=== PATIENT | female | born 2000 | race Caucasian/White ===

== ENCOUNTER 2018-12-27 11:28 | Emergency (ER) | payer MEDICAID, SELFPAY ==
[2018-12-27 11:33] VITALS: BP 141/80; PULSE 124; RESP 20; TEMP 36.6; O2SAT 100
[2018-12-27] MEDS: Normal Saline 1,000 ML 1000 ML IV ×2 (11:53→17:00)
[2018-12-27] MEDS: Normal Saline Flush 10 ML SYR IVP (11:53)
[2018-12-27 11:55] LABS: HCO3 (Venous) 18 mmol/L (22-28); O2 Sat (Venous) 53 % (70-80); TCO2 (Venous) 17 mmol/L (22-29); pCO2 (Venous) 45 mm/Hg (34-47); pO2 (Venous) 33 mm/Hg (28-44)
--- NOTE | 2018-12-27 11:58 | ED.GENADUL_ITS ---
Discharge Plan Disposition Patient Disposition: HOME Condition: Stable Discharge Details Chief Complaint: Diabetes Clinical Impression: DKA (diabetic ketoacidoses) Primary Care Provider: None,None ED Provider: Wally Jason Home Meds and New Rx's Prescriptions: New ondansetron 4 mg tablet,disintegrating 4 mg PO TID PRN (Reason: nausea and vomiting) 5 Days Qty: 30 RF: 0 Continued methen-m.blue-s.nutc-nksvp-sfa [Uribel] 1 EACH capsule 1 ea PO DAILY Qty: 20 RF: 0 ondansetron HCl [Zofran] 4 mg Tablet 4 mg PO PRN PRNRF: 0 meclizine 12.5 mg Tablet 12.5 mg PO PRN PRNRF: 0 No Action insulin aspart U-100 [Novolog Flexpen U-100 Insulin] 300 UNITS/3 ML insulin pen 1 units Sub-Q AC Qty: 1 RF: 0 insulin glargine [Lantus Solostar U-100 Insulin] 300 UNITS/3 ML insulin pen 28 unit SQ DAILY@1200 Qty: 1 RF: 0 pen needle, diabetic [Unifine Pentips] 1 EACH needle 1 ea Miscellaneous AC Qty: 100 RF: 0 Discharge Instructions Additional Instructions: You were in mild diabetic ketoacidosis that improved with fluids and insulin Try to make sure your insulin pump has the proper amount of insulin in Follow up with your primary care provider within 1-2 weeks if you have persistent vomit, feel more pain or feel significantly more ill return to the emergency department for an evaluation Discharge Data Discharge Date/Time-TO BE ENTERED AT DEPARTURE: 12/27/18 18:18 Medical Decision Making <Juan Wagner NP - Last Filed: 12/30/18 11:39> Patient presenting to the emergency department for chief complaint of abdominal pain, chest pain, and high sugars. Patient states that she is a type I diabetic and her insulin pump ran out of insulin last night in the middle the night when she was unaware of this. Patient denies any fever chills but does state some nausea without vomiting. Patient has diffuse chest pain and abdominal pain on physical exam and tachycardia otherwise unremarkable exam. Plan to give pain meds, IV fluids, check labs for concern of of DKA. Fingerstick sugar was reviewed and was 380s so patient ordered 10 mg IV insulin Reassessed after 1 L of normal saline, 1 L of LR, and insulin. Blood sugar has reduced and patient states significant improvement of pain discomfort and is fee ling better.normal chest xray. Patient still has dry mucosa so plan to check labs for review of anion gap, see if acidosis that was present on initial VBG has improved, and reassess need for further fluid hydration and insulin Reviewed labs and patient continues to have anion gap but no further acidosis, sugar has lowered to the low 200s, potassium remains okay. Patient ordered 5 more milligrams of IV insulin, 1 more liter of normal saline and LR. Pending further treatment patient was signed out to Dr. Erich Jason for reassessment and repeat labs as needed and p.o. challenge of patient. working Dx of DKA. Lab Data Lab results reviewed: Yes I reviewed the patient's lab results. HPI <Juan Wagner NP - Last Filed: 12/30/18 11:39> General Mode of arrival: ambulatory . Date/Time Provider Initiated Documentation: 12/27/18 11:34 . Limitations to Documentation: no limitations . Information obtained by: patient and RN notes reviewed . History of Present Illness 18 year old F presents to the emergency department with the chief complaint of Hyperglycemia, described as moderate, with intensity rated at 8. Quality is described as sharp, and is localized to the chest, abdomen, upper extremity and lower extremity. Related Data Home Medications Medication Instructions Recorded Confirmed insulin aspart U-100 [Novolog 1 units SUB-Q AC #1 pen 04/28/17 12/08/17 Flexpen U-100 Insulin] insulin glargine [Lantus Solostar 28 unit SQ DAILY@1200 #1 pen 04/28/17 12/08/17 U-100 Insulin] pen needle, diabetic [Unifine #100 dis.needle 04/28/17 12/08/17 Pentips] gaylebyrj-aaphc-tax 1 ea PO DAILY #20 tab-cap 02/10/18 [Uribel] meclizine 12.5 mg PO PRN PRN 12/27/18 12/27/18 ondansetron 4 mg PO TID PRN 5 Days #30 tab 12/27/18 ondansetron HCl [Zofran] 4 mg PO PRN PRN 12/27/18 12/27/18 Previous Rx's Medication Instructions Recorded insulin aspart U-100 [Novolog 1 units SUB-Q AC #1 pen 04/28/17 Flexpen U-100 Insulin] insulin glargine [Lantus Solostar 28 unit SQ DAILY@1200 #1 pen 04/28/17 U-100 Insulin] pen needle, diabetic [Unifine #100 dis.needle 04/28/17 Pentips] gaylehnzo-sbumd-rvh 1 ea PO DAILY #20 tab-cap 02/10/18 [Uribel] ondansetron 4 mg PO TID PRN 5 Days #30 tab 12/27/18 Allergies Allergy/AdvReac Type Severity Reaction Status Date / Time No Known Allergies Allergy Unverified 12/27/18 11:36 General Stated Complaint: Diabetes KYLE: 3 Review of Systems <Juan Wagner NP - Last Filed: 12/30/18 11:39> Constitutional Denies chills, Denies fever(s) and Denies poor appetite Cardiovascular Reports chest pain and Denies dyspnea Respiratory Denies cough and Denies dyspnea Gastrointestinal Reports as per HPI, Reports abdominal pain, Denies melena, Denies change in bowel habits, Denies constipation, Denies diarrhea, Reports nausea and Denies vomiting Genitourinary Denies hematuria, Denies urinary incontinence, Denies urinary hesitancy and Denies urinary urgency Integumentary/Breasts Denies rash PFSH <Juan Wagner NP - Last Filed: 12/30/18 11:39> Medical History Diabetes Social History Smoking and Tabacco status: Never Exam <Juan Wagner NP - Last Filed: 12/30/18 11:39> Const General: cooperative Orientation: alert, awake and oriented x3 Chest Chest: normal inspection of the chest and tenderness (Diffuse nonfocal) Resp Effort & Inspection: normal respiratory effort and able to speak in complete sentences Auscultation: clear to auscultation bilaterally Cardio Rate: tachycardic Rhythm: regular rhythm Heart Sounds: S1 normal, S2 normal, no click, no gallops, no murmurs and no rubs GI Palpation: soft, no hepatosplenomegaly, not firm, no guarding, no masses, no pulsatile masses, not rigid, no splenomegaly and tender (Diffuse nonfocal) Auscultation: normal bowel sounds Back/Spine/Pelvis Back: no CVA tenderness Neuro General: alert, awake, oriented x3, gait normal and moves all extremities Course <Juan Wagner NP - Last Filed: 12/30/18 11:39> Vital Signs Temperature 36.6 C 12/27/18 11:33 Pulse 124 H 12/27/18 11:33 Respiratory Rate 20 12/27/18 11:33 Blood Pressure 141/80 H 12/27/18 11:33 Pulse Oximetry 100 12/27/18 11:33 Temperature 36.6 C 12/27/18 11:33 Temperature Source Temporal Artery Scan 12/27/18 11:33 Pulse 124 H 12/27/18 11:33 Respiratory Rate 20 12/27/18 11:33 Respiratory Effort Non-Labored 12/27/18 11:33 Blood Pressure 141/80 H 12/27/18 11:33 Blood Pressure Position Sitting 12/27/18 11:33 Pulse Oximetry 100 12/27/18 11:33 Pain Level 10 12/27/18 11:33 Sign Out <Juan Wagner NP - Last Filed: 12/30/18 11:39> Sign Out Data: Sign Out Comment: Patient signed out to Dr. Erich Jason for reassessment after additional 2 L of fluids, IV insulin. Concern for DKA. Last updated by Juan Wagner NP at 12/27/18 16:12 Post-Handoff Eval: PAtient's labs signifciatnly improved, no longer has acidosis and she is tolerating po without any issues, no n/v. She feels well enough to be d/c'd and confirms with me that she does have insulin for her pump she just forgot to fill it last night which led to the mild dka today. She will f/u with pcp and return precautions given
[2018-12-27 11:59] LABS: Abs Immature Grans 0.05 k/cumm (0.0-0.09); Absolute Basophil Count 0.02 k/cumm (0.0-0.2); Absolute Lymphocyte Count 1.65 k/cumm (1.2-3.4); Absolute Monocyte Count 0.37 k/cumm (0.11-0.7); Absolute Neutrophil Count 13.42 k/cumm (1.2-6.7); Basophils % 0.1; Eosinophils % 0.3; HCT 41.8 % (36.0-46.0); HGB 14.3 g/dL (12.0-15.5); Immature Grans % 0.3; Lymphocytes % 10.6; Mean Corp. HGB Concentration 34.2 g/dL (32.0-36.0); Mean Corpuscular Hemoglobin 28.2 pg (27.0-33.0); Mean Corpuscular Volume 82.4 fL (80-95); Mean Platelet Volume 10.3 fL (8.0-11.0); Monocytes % 2.4; Neutrophils % 86.3; Platelet Count 340 x1000/uL (130-400); RBC 5.07 m/cumm (4.00-5.20); RBC Distribution Width 12.8 % (11.7-14.6); White Blood Cell Count 15.55 k/cumm (4.4-10.8)
[2018-12-27 12:00] LABS: Absolute Eosinophil Count 0.05 k/cumm (0.0-0.7)
[2018-12-27] MEDS: Insulin REGULAR-Human 100 UNITS/ML UNIT 10 UNITS IV (12:00)
[2018-12-27] MEDS: MORPHine 10 MG/ML VIAL 4 MG IVP (12:00)
--- NOTE | 2018-12-27 12:06 | DI.RAD_ITS ---
SYMPTOMS/DIAGNOSIS: CHEST PAIN CHEST X-RAY, PA AND LATERAL: No priors. The heart is normal in size. The lungs are clear. The mediastinal structures and pleura appear intact. IMPRESSION: Normal chest.
[2018-12-27 12:11] LABS: ALT 15 U/L (12-78); AST 15 U/L (15-37); Albumin 4.1 g/dL (3.4-5.0); Alkaline Phosphatase 99 U/L (46-116); Anion Gap 19.3 mmol/L (3-11); BUN 17 mg/dL (7-18); Bilirubin, Total 1.1 mg/dL (0.2-1.0); CO2 19.7 mmol/L (21.0-32.0); CREATININE 1.09 mg/dL (0.55-1.02); Calcium 9.9 mg/dL (8.5-10.1); Chloride 98 mmol/L (98-107); Glucose 382 mg/dL (70-100); Magnesium 1.6 mg/dL (1.8-2.4); PHOSPHORUS 3.5 mg/dL (2.6-4.7); Sodium 137 mmol/L (136-145)
[2018-12-27] MEDS: Ondansetron O.D.T. 4 MG TABEF PO (12:16)
[2018-12-27] MEDS: Lactated Ringers 1,000 ML 1000 ML IV (13:17)
[2018-12-27 13:28] LABS: Bilirubin Negative (Negative); Blood Negative (Negative); Clarity Clear; Glucose 500 mg/dL (Negative); Ketones 80 mg/dL (Negative); Leukocyte Esterase Negative (Negative); Nitrite Negative (Negative); Urobilinogen 0.2 EU/dL (Up TO 0.2); pH 5.5 (5-8)
[2018-12-27 14:21] LABS: TSH (W/Ref FT4) 1.12 uIU/mL (0.358-3.74)
--- NOTE | 2018-12-27 14:38 | DI.VRAD_ITS ---
EXAM: XR Chest, 2 Views EXAM DATE/TIME: 12/27/2018 1:53 PM CLINICAL HISTORY: 18 years old, female; Signs and symptoms; Other: Chest pain TECHNIQUE: XR of the chest, 2 views. COMPARISON: No relevant prior studies available. FINDINGS: The lung islas are clear bilaterally. No focal pulmonary consolidation is present. The cardiac silhouette is within normal limits. The costophrenic angles are sharp. The bony structures appear unremarkable. IMPRESSION: No evidence of acute cardiopulmonary disease. Dictated and Authenticated by: Leonidas Mathias MD. Ordering:KAILASH Martinez MD
[2018-12-27 15:25] LABS: HCO3 (Venous) 18 mmol/L (22-28); O2 Sat (Venous) 95 % (70-80); TCO2 (Venous) 16 mmol/L (22-29); pCO2 (Venous) 33 mm/Hg (34-47); pH (Venous) 7.33 (7.32-7.43); pO2 (Venous) 74 mm/Hg (28-44)
[2018-12-27 15:34] LABS: Anion Gap 14.8 mmol/L (3-11); BUN 18 mg/dL (7-18); CO2 19.2 mmol/L (21.0-32.0); CREATININE 0.82 mg/dL (0.55-1.02); Chloride 103 mmol/L (98-107); Glucose 219 mg/dL (70-100); Potassium 4.3 mmol/L (3.5-5.1); Sodium 137 mmol/L (136-145)
[2018-12-27] MEDS: MORPHine 10 MG/ML VIAL 2 MG IVP (16:59)
[2018-12-27] MEDS: Insulin REGULAR-Human 100 UNITS/ML UNIT IV (17:00)
[2018-12-27 18:13] VITALS: BP 118/61; PULSE 120; RESP 24; TEMP 36.8; O2SAT 98
[2018-12-27] MEDS: oxyCODONE 5 MG TAB 15 MG PO (18:18)
== END 2018-12-27 18:18 | disposition home or self-care (01) ==
PROVIDERS: Nurse Practitioner Family; Emergency Provider Emergency Medicine
DX: R07.9 Chest pain, unspecified (principal); R10.84 Generalized abdominal pain; T85.694A Other mechanical complication of insulin pump, initial encounter; E10.65 Type 1 diabetes mellitus with hyperglycemia; E10.10 Type 1 diabetes mellitus with ketoacidosis without coma; Z96.41 Presence of insulin pump (external) (internal)
CPT/HCPCS: 36415; 36416; 80048; 80053; 82805; 82962; 87449; 93005; 96361; 96374; 96375; 96376; 99285; 71046; 81003; 83735; 84100; 84443; 85025; 93010; J2270

== ENCOUNTER 2022-07-06 04:28 | Emergency (ER) | payer MEDICAID, SELFPAY ==
[2022-07-06 04:35] VITALS: BP 123/76; PULSE 129; RESP 18; TEMP 36.6; O2SAT 97
--- NOTE | 2022-07-06 04:45 | RT.EKG_ITS ---
APPROVED REPORT Exam: Resting ECG Reason for Exam: palpitations Patient Location: E HR:117 bpm ECG Measurements Heart Rate 117 AXIS GA 149 P 52 QRSd 78 QRS 82 QT 331 T 30 QTc 461 Conclusion Sinus tachycardia...rate> 99 Physician: stable, no stemi, intervals normal
--- NOTE | 2022-07-06 04:47 | W.ED.GENAD ---
Discharge Plan Disposition Patient Disposition: HOME Condition: Good Discharge Details Clinical Impression: Urinary tract infection, Acute dehydration Primary Care Provider: Montez Arce ED Provider: Erich Doan Home Meds and New Rx's Prescriptions: New cephalexin 500 mg capsule 500 mg PO QID 5 Days Qty: 20 0RF No Action yazanshariCarolterriAmaliaaleciaCarolbelkisbgut-stcxu-cbt [Uribel] 1 EACH capsule 1 ea PO DAILY Qty: 20 0RF insulin aspart U-100 [Novolog Flexpen U-100 Insulin] 300 UNITS/3 ML insulin pen 1 units Sub-Q AC Qty: 1 0RF Protocol: Insulin Sliding Scale-Sensitive Condition: <140 Dose/Route: 0 units Condition: 140-180 Dose/Route: 1 unit (plus any scheduled dose) Condition: 181-220 Dose/Route: 2 unit (plus any scheduled dose) Condition: 221-260 Dose/Route: 3 unit (plus any scheduled dose) Condition: 261-300 Dose/Route: 4 unit (plus any scheduled dose) Instruction: (and call hospitalist about adjusting basal insulin) Condition: 301-340 Dose/Route: 5 unit (plus any scheduled dose) Instruction: (and call hospitalist about adjusting basal insulin) Condition: 341-380 Dose/Route: 6 unit (plus any scheduled dose) Instruction: (and call hospitalist about adjusting basal insulin) Condition: 381-420 Dose/Route: 7 unit (plus any scheduled dose) Instruction: (and call hospitalist about adjusting basal insulin) Condition: 421-460 Dose/Route: 8 unit (plus any scheduled dose) Instruction: (and call hospitalist about adjusting basal insulin) Condition: 461-500 Dose/Route: 9 unit (plus any scheduled dose) Instruction: (See Text) Protocol Text: If Blood Glucose over 500 contact hospitalist about an insulin infusion or adjusting sliding scale. Rx Instructions: see printed carbohydrate scale AND correction scale insulin glargine [Lantus Solostar U-100 Insulin] 300 UNITS/3 ML insulin pen 28 unit SQ DAILY@1200 Qty: 1 0RF (DME) pen needle, diabetic [Unifine Pentips] 1 EACH needle 1 ea Miscellaneous AC Qty: 100 0RF Rx Instructions: Andra needle 5/16 pen needles ondansetron HCl [Zofran] 4 mg Tablet 4 mg PO PRN PRN meclizine 12.5 mg Tablet 12.5 mg PO PRN PRN Discharge Instructions Instructions: Dehydration (ED), Urinary Tract Infection in Women (ED) Additional Instructions: At this time you do have a mild urinary tract infection. Please drink cranberry juice, stay well-hydrated, and take the Keflex as prescribed. It has been sent to your pharmacy on file. Drink plenty of fluids throughout the day. Take the Klonopin only if absolutely needed for panic. If you do decide to take the Klonopin, please pump and dump for 24 hours afterwards to prevent any effect to your baby. If you notice any worsening of your symptoms, or any new symptoms such as vomiting, diarrhea, fever, chills, shortness of breath, chest pain, numbness, weakness, or fainting , please return immediately to the emergency department for reevaluation. Please follow up with your primary care provider as soon as possible for reassessment and reevaluation. As always, it was a pleasure participating in your medical care today. Referrals: Montez Arce [Primary Care Provider] - Medical Decision Making This is a 21-year-old female with a past medical history of type 1 diabetes, anxiety, who is about 3 weeks secondary to emergency , whom since her emergency required a blood infusion secondary to blood loss, and has been suffering from persistent mild vertigo, who presents today for symptoms of weakness, dizziness, lightheadedness, right flank pain. Patient is supposed to be getting in the next few hours. She states that she has not slept over the last 24 hours, she is not been eating well either. She has had nausea but no vomiting. She admits to continued soreness in her lower abdomen at the location of the site, but denies any new pain. She denies any fever or chills. She denies any chest pain, pleuritic chest pain, or shortness of breath. She does admit to notable fatigue ago. She has taken her home meclizine and Zofran to help with the dizziness but this is not helped. She states that it has been persistent since her . She also does feel like she had a panic attack earlier last evening, but that it felt somewhat atypical of her normal panic attacks. Of note while she was at [facility] for her , she did have a Holter monitor that was placed that demonstrated no significant cardiac abnormality. She does have a history of an elevated heart rate Physical exam demonstrates dry mucous membranes, mildly elevated heart rate, mildly tender abdomen but the patient states that this is been baseline since the procedure. Bedside ultrasound shows no evidence of fluid collection at the postoperative surgical incision site. Differential is broad, but includes urinary tract infection, DKA, dehydration, anemia, and notably less likely endometritis. We will rehydrate the patient, give antiemetics, monitor closely and reassess. Patient's vertiginous symptoms appear to be notably peripheral on exam. She has no headache. No indication for neuroimaging at this time. EKG is stable and unremarkable. 5:51 AM Laboratory work-up has returned, no white count bandemia or left shift. Hemoglobin levels are stable at 12.3. Electrolytes normal, VBG demonstrates no acidosis. Anion gap normal. No evidence of DKA. However I do feel that the patient is clinically dehydrated at this time. Thyroid function is normal. Urinalysis does show evidence of ketones, there is also evidence of urinary tract infection, albeit mild. We will treat the patient with ceftriaxone here and Keflex for home. We will give a dose of meclizine here also to help with the dizziness. The patient and mother and future yeeseq-zq-hfm all have requested something to help with anxiety/panic today during the ceremonies, and I have offered a small dose of Klonopin to be used as needed. I have recommended pumping and dumping afterwards to prevent any ill effect to her baby. Vital signs have stabilized here in the ED. Patient feels much better and would like to go home. I have extensively reviewed the treatment plan and discharge instructions with the patient. I have addressed all patient concerns at this time. The patient was made aware of what symptoms to monitor for that would warrant a return to the emergency department. Discussed the plan with the patient, they demonstrate verbal understanding and agreement with our assessment and plan at this time. The documentation in this chart was dictated using [employer] dictation software. Please excuse any dictation errors. HPI General Date/Time Provider Initiated Documentation: 07/06/22 04:33. HPI Narrative: This is a 21-year-old female with a past medical history of type 1 diabetes, anxiety, who is about 3 weeks secondary to emergency , whom since her emergency required a blood infusion secondary to blood loss, and has been suffering from persistent mild vertigo, who presents today for symptoms of weakness, dizziness, lightheadedness, right flank pain. Patient is supposed to be getting in the next few hours. She states that she has not slept over the last 24 hours, she is not been eating well either. She has had nausea but no vomiting. She admits to continued soreness in her lower abdomen at the location of the site, but denies any new pain. She denies any fever or chills. She denies any chest pain, pleuritic chest pain, or shortness of breath. She does admit to notable fatigue ago. She has taken her home meclizine and Zofran to help with the dizziness but this is not helped. She states that it has been persistent since her . She also does feel like she had a panic attack earlier last evening, but that it felt somewhat atypical of her normal panic attacks. Of note while she was at [facility] for her , she did have a Holter monitor that was placed that demonstrated no significant cardiac abnormality. She does have a history of an elevated heart rate Related Data Home Medications Medication Instructions Recorded Confirmed insulin aspart U-100 100 unit/mL 1 units subcut AC ##1 04/28/17 12/08/17 (3 mL) subcutaneous pen (Novolog Flexpen U-100 Insulin aspart) insulin glargine 100 unit/mL (3 28 unit (0.28 mL) SQ DAILY@1200 ##1 04/28/17 12/08/17 mL) subcutaneous pen (Lantus Solostar U-100 Insulin) pen needle, diabetic 31 gauge x ##100 04/28/17 12/08/1701/30 (Unifine Pentips) methenam 118 mg-m.blue 10 1 ea PO DAILY #20 tab-caps 02/10/18 mg-s.phos 40.8 mg-p.salic 36 mg-hyos capsule (Uribel) meclizine 12.5 mg tablet 12.5 mg PO PRN PRN 12/27/18 12/27/18 ondansetron HCl 4 mg tablet 4 mg PO PRN PRN 12/27/18 12/27/18 (Zofran) cephalexin 500 mg capsule 500 mg PO QID 5 days #20 caps 07/06/22 Previous Rx's Medication Instructions Recorded insulin aspart U-100 100 unit/mL 1 units subcut AC ##1 04/28/17 (3 mL) subcutaneous pen (Novolog Flexpen U-100 Insulin aspart) insulin glargine 100 unit/mL (3 28 unit (0.28 mL) SQ DAILY@1200 ##1 04/28/17 mL) subcutaneous pen (Lantus Solostar U-100 Insulin) pen needle, diabetic 31 gauge x ##100 04/28/17 3/ (Unifine Pentips) methenam 118 mg-m.blue 10 1 ea PO DAILY #20 tab-caps 02/10/18 mg-s.phos 40.8 mg-p.salic 36 mg-hyos capsule (Uribel) cephalexin 500 mg capsule 500 mg PO QID 5 days #20 caps 07/06/22 Allergies Allergy/AdvReac Type Severity Reaction Status Date / Time No Known Allergies Allergy Unverified 12/27/18 11:36 General KYLE: 3 Review of Systems All systems reviewed & are unremarkable except as noted in HPI and below PFSH All Active Problems (Updated 07/06/22 @ 05:49 by Erich Doan DO) Urinary tract infection (Acute) Acute dehydration (Acute) Medical History (Updated 07/06/22 @ 05:49 by Erich Doan DO) Diabetes Social History Smoking/Tobacco Use Status: Never Smoking risk assessment performed?: Yes Drug use: Never Do you feel safe in your relationship?: Yes Exam Narrative Exam Narrative: 1.Const: Well-nourished, Well-developed, appearing stated age 2.Eyes: PERRL, no conjunctival injection, and symmetrical lids. Fatigable unidirectional left-sided horizontal nystagmus. No vertical or rotatory nystagmus. 3.ENT: Atraumatic external nose and ears. Dry MM. Neck: Symmetric, trachea midline, No thyromegaly. 4.CVS: +S1/S2, No murmurs or gallops. Peripheral pulses 2+ and equal in all extremities. Brisk capillary refill in all extremities. 5.RESP: Unlabored respiratory effort. Clear to auscultation bilaterally. No wheezes rales or rhonchi 6.GI: Soft, nondistended, incision site is clean dry and intact. Ultrasound incision site shows no seroma or fluid collection. Abdomen is generally postoperatively mildly tender, but notably nonsurgical. No rebound. No guarding. 7.MSK: Normocephalic/Atraumatic, Extremities w/o deformity or ttp No cyanosis or clubbing, Normal movement of all extremities 8.Skin: Warm, Dry. No rashes or lesions. 9.Neuro: night patrol inspector II-XII grossly intact. Sensation grossly intact, no focal neurologic deficits. All 6 cardinal planes of vision are fully intact. No evidence of rotatory or vertical nystagmus. The patient demonstrated a normal hxkfhk-ufri-qlqcuv, good dexterity. There was no evidence of dysdiadochokinesia. Patient was able to ambulate without difficulty. There was no wide-based gait. Romberg testing was normal. Toqv-sv-qavb testing was normal. Sensation was intact bilaterally as well as muscle strength bilaterally for all extremities. Patient was able to verbalize butter cup with no slurring, or miss pronunciation. 10.Psych: (AAO) x3. Appropriate mood and affect
[2022-07-06 04:48] VITALS: RESP 22
[2022-07-06] MEDS: Normal Saline 1,000 ML 1000 ML IV (05:10)
[2022-07-06] MEDS: Ondansetron 4 MG/2 ML VIAL IVP (05:12)
[2022-07-06 05:14] LABS: Abs Immature Grans 0.02 10^3/uL (0.0-0.06); Absolute Basophil Count 0.02 10^3/uL (0.0-0.2); Absolute Eosinophil Count 0.06 10^3/uL (0.0-0.7); Absolute Lymphocyte Count 0.82 10^3/uL (1.2-3.4); Absolute Monocyte Count 0.44 10^3/uL (0.1-0.8); Absolute Neutrophil Count 8.57 10^3/uL (1.2-6.7); Basophils % 0.2; Eosinophils % 0.6; HCT 37.7 % (36.0-46.0); HGB 12.3 g/dL (11.2-15.7); Immature Grans % 0.2; Lymphocytes % 8.3; MCH 26.1 pg (27.0-33.0); MCHC 32.6 % (32.0-36.0); MCV 80 fL (80-95); MPV 9.7 fL (8.0-11.0); Monocytes % 4.4; Neutrophils % 86.3; Platelet Count 220 10^3/uL (130-400); RBC 4.72 10^6/uL (3.93-5.22); RDW 15.1 % (11.7-14.6); RDW-SD 44.2 fL; WBC 9.93 10^3/uL (4.4-10.8)
[2022-07-06 05:15] LABS: BE (Venous) -2 mmol/L (-2-3); HCO3 (Venous) 24 mmol/L (23-28); O2 Sat (Venous) 72 %; TCO2 (Venous) 22 mmol/L (24-29); pCO2 (Venous) 44 mmHg (41-51); pH (Venous) 7.34 (7.31-7.41); pO2 (Venous) 39 mmHg
[2022-07-06 05:18] LABS: Bilirubin Negative (Negative); Blood Small (Negative); Clarity Clear (Clear); Glucose Negative (Negative); Ketones 80 mg/dL (Negative); Leukocyte Esterase Trace (Negative); Nitrite Negative (Negative); Specific Gravity >= 1.030 (1.005-1.025); Urobilinogen 0.2 EU/dL (Up TO 0.2); pH 5.5 (5-8)
[2022-07-06 05:25] LABS: Bacteria Few HPF (Negative); C & S Indicated? Yes; Casts Negative LPF (Negative); Crystals Negative HPF (Negative); Epithelial Cells Rare HPF (Negative); Mucus Negative (Negative)
[2022-07-06 05:41] LABS: ALT 20 U/L (14-59); AST 10 U/L (15-37); Albumin 3.7 g/dL (3.4-5.0); Alkaline Phosphatase 89 U/L (46-116); Anion Gap 10.2 mmol/L (3-11); BUN 8 mg/dL (7-18); Bilirubin, Total 0.6 mg/dL (0.2-1.0); CO2 26.8 mmol/L (21.0-32.0); CREATININE 0.8 mg/dL (0.55-1.02); Calcium 9.1 mg/dL (8.5-10.1); Chloride 105 mmol/L (98-107); Glucose 201 mg/dL (74-106); Potassium 3.7 mmol/L (3.5-5.1); Sodium 142 mmol/L (136-145); TSH (W/Ref FT4) 0.93 uIU/mL (0.36-3.74); Total Protein 7.2 g/dL (6.4-8.2)
[2022-07-06] MEDS: cefTRIAXone 1 GM/50 ML BAG IVPB (05:53)
[2022-07-06] MEDS: Meclizine 25 MG TAB PO (05:57)
[2022-07-06] MEDS: clonazePAM 0.5 MG TAB PO (06:04)
== END 2022-07-06 06:46 | disposition home or self-care (01) ==
PROVIDERS: Emergency Provider Student in an Organized Health Care Education/Training Program; PCP Family Medicine
DX: O86.20 Urinary tract infection following delivery, unspecified (principal); N39.0 Urinary tract infection, site not specified; B96.89 Other specified bacterial agents as the cause of diseases classified elsewhere; O99.285 Endocrine, nutritional and metabolic diseases complicating the puerperium; E86.0 Dehydration; O24.03 Pre-existing type 1 diabetes mellitus, in the puerperium
CPT/HCPCS: 80048; 80053; 82805; 93005; 96361; 96365; 96375; 99284; 81003; 81015; 84443; 85025; 87086; 93010; J0696; J2405

== ENCOUNTER 2025-04-18 15:51 | Outpatient (REF) | payer OTHER, SELFPAY | END 2025-04-18 15:52 | disposition home or self-care (01) | LOC: LBN 15:51 | PROVIDERS: PCP Family Medicine; Visit Provider Nurse Practitioner Family | DX: J02.9 Acute pharyngitis, unspecified (principal) | CPT/HCPCS: 87070 ==